=== PATIENT | female | born 2000 | race Caucasian/White ===

== ENCOUNTER 2018-11-22 00:01 | Emergency (ER) | payer SELFPAY ==
[~2018-11-22] VITALS: Ht 165.1 cm; Wt 64.6 kg
[2018-11-22 00:08] VITALS: BP 132/67; PULSE 113; RESP 20; Ht 165.1 cm; Wt 64.6 kg
== END 2018-11-22 01:45 | disposition left against medical advice (07) ==
LOC: FTE 00:01
DX: Z53.21 Procedure and treatment not carried out due to patient leaving prior to being seen by health care provider (principal)